=== PATIENT | female | born 1980 | race Caucasian/White ===

== ENCOUNTER 2020-06-06 16:44 | Emergency (ER) | payer BC | END 2020-06-06 17:43 | disposition left against medical advice (07) | LOC: ER1 16:44 | DX: U07.1 COVID-19 (principal); Z53.21 Procedure and treatment not carried out due to patient leaving prior to being seen by health care provider ==

== ENCOUNTER → 2021-01-25 | Outpatient (CLI) | payer BC | LOC: NM 08:00 | DX: R10.13 Epigastric pain (principal) | CPT/HCPCS: 78264; A9541 ==

== ENCOUNTER 2021-10-05 00:45 | Emergency (ER) | payer BC ==
[2021-10-05 02:48] LABS: HEMOGLOBIN 12.9 gm/dl (12.3-15.3); RED BLOOD COUNT 4.18 M/UL (4.00-5.10); WHITE BLOOD COUNT 12.3 K/UL (4.5-11.0)
[2021-10-05 03:13] LABS: BUN/CREATININE RATIO 14 (0-10)
== END 2021-10-05 05:14 | disposition home or self-care (01) ==
LOC: ER1 00:45
PROVIDERS: Physician Assistant
DX: R07.9 Chest pain, unspecified (principal); R06.02 Shortness of breath; Z20.822 Contact with and (suspected) exposure to COVID-19
CPT/HCPCS: 71045; 80053; 82550; 82553; 84484; 85025; 85379; 93005; 99285; U0002

== ENCOUNTER 2021-10-28 20:21 | Emergency (ER) | payer BC | END 2021-10-28 21:10 | disposition left against medical advice (07) | LOC: ER1 20:21 | DX: R60.0 Localized edema (principal); K21.9 Gastro-esophageal reflux disease without esophagitis | CPT/HCPCS: 99282 ==

== ENCOUNTER → 2021-11-01 | Outpatient (CLI) | payer BC ==
[2021-11-01 12:15] LABS: HEMOGLOBIN 11.8 gm/dl (12.3-15.3); RED BLOOD COUNT 3.88 M/UL (4.00-5.10)
[2021-11-01 13:10] LABS: BUN/CREATININE RATIO 18 (0-10)
[2021-11-02 07:13] LABS: VITAMIN D, 25-HYDROXY 31.3 ng/mL (30.0-100.0)
[2021-11-02 08:14] LABS: HBSAG SCREEN Negative (Negative); HCV AB 0.3 (0.0-0.9); HEP A AB, IGM Negative (Negative); HEP B CORE AB, IGM Negative (Negative)
== END ==
LOC: US 11:00
PROVIDERS: Nurse Practitioner Family
DX: R60.0 Localized edema (principal); M79.604 Pain in right leg; M79.651 Pain in right thigh
CPT/HCPCS: 36415; 80053; 80061; 80074; 82550; 82553; 82607; 83036; 83540; 83550; 83880; 84443; 84484; 85025; 85379; 85652; 86140; 93971

== ENCOUNTER → 2021-12-17 | Outpatient (CLI) | payer BC | LOC: MRI 13:59 | DX: E22.1 Hyperprolactinemia (principal); R90.89 Other abnormal findings on diagnostic imaging of central nervous system | CPT/HCPCS: 70553; A9577 ==